=== PATIENT | male | born 1985 | race Caucasian/White ===

== ENCOUNTER 2023-01-19 02:31 | Emergency (ER) | payer SELFPAY ==
[2023-01-19 02:35] VITALS: BP 156/110; PULSE 74; RESP 18; TEMP 36.3; O2SAT 100; BMI 33.0
--- NOTE | 2023-01-19 02:41 | XRR_ITS ---
PROCEDURE INFORMATION: Exam: XR Chest Exam date and time: 01/19/2023 2:44 AM Age: 37 years old Clinical indication: Shortness of breath; Sternal or substernal pain; Patient HX: C/O substernal chest pain with SOB. ; Additional info: Cp TECHNIQUE: Imaging protocol: Radiologic exam of the chest. Views: 1 view. COMPARISON: No relevant prior studies available. FINDINGS: Lungs: Unremarkable. No consolidation. Pleural spaces: Unremarkable. No pleural effusion. No pneumothorax. Heart/Mediastinum: Unremarkable. No cardiomegaly. Bones/joints: Unremarkable. XR/XR chest 1V portable [id number] IMPRESSION: No acute findings.
--- NOTE | 2023-01-19 02:44 | ED_ITS ---
HPI - Chest Pain General: Chief Complaint: Chest Pain Stated Complaint: SOB Time Seen by Provider: 01/19/23 02:31 Source: patient Mode of arrival: ambulatory Limitations: no limitations History of Present Illness: 29-year-old male states been having some sharp chest pains over the last 2 days. He states the pain is a center of his chest he rates it a 3 out of 10 currently denies any nausea denies any diaphoresis denies any shortness of breath he denies any worsening proving factors. Denies any abdominal pain or vomiting. Associated symptoms: Deny abdominal pain, dyspnea, fever(s), nausea or vomiting Review of Systems Const: Denies: fever(s), chills, body aches or change in appetite Eyes: Denies: blurry vision or eye discomfort ENMT: Denies: throat pain or dental pain Card: Reports: chest pain Resp: Denies: dyspnea GI: Denies: abdominal pain, nausea, vomiting or diarrhea : Denies: dysuria Musc: Denies: neck pain or back pain Skin/Breast: Denies: rash Neuro: Denies: headache(s) Psych: Denies: depression Demetri/Lymph: Denies: easy bruising All/Imm: Denies: urticaria PFSH ED 2 PFSH: Medical History (Updated 01/19/23 @ 03:36 by Megan Jacinto MD) Hypertension Social History (Updated 01/19/23 @ 02:44 by Megan Jacinto MD) Substance/Drug Use: never Physical Exam Const: COMMON NORMALS: no acute distress, patient oriented x3 and healthy a ppearing HENMT: COMMON NORMALS: normocephalic and atraumatic HEAD & SCALP: normocephalic and atraumatic Eye: COMMON NORMALS: Equal, round and reactive pupils present and EOMs intact bilaterally PUPIL: Yes Equal, round and reactive pupils present Neck/C-Spine: COMMON NORMALS: full ROM and supple Chest: COMMONS NORMALS: normal inspection of the chest and normal palpation of entire chest wall Resp: COMMON NORMALS: normal respiratory effort, No retractions, No use of accessory muscles and clear to auscultation bilaterally AUSCULTATION: clear to auscultation bilaterally Cardio: COMMON NORMALS: regular rate, regular rhythm and No murmurs present (Cardio) RATE: regular rate RHYTHM: regular rhythm GI: COMMON NORMALS: Normal to inspection, nondistended, normoactive bowel sounds present, Soft to palpation, non-tender and no masses PALPATION: Yes Soft to palpation Extremity: COMMON NORMALS: normal to inspection and full ROM Neuro: COMMON NORMALS: patient oriented x3, moves all extremities and no focal motor deficits Psych: COMMON NORMALS: mental status grossly normal, Normal thought process p resent and cooperative THOUGHT PROCESS: Normal thought process present Skin: COMMON NORMALS: no rashes or lesions noted and no wounds GENERAL SKIN EXAM: no rashes or lesions noted Course Vital Signs: Vital signs: Vital Signs Temperature 97.3 F L 01/19/23 02:35 Pulse Rate 75 01/19/23 03:02 Respiratory Rate 13 01/19/23 03:02 Blood Pressure 128/92 01/19/23 03:02 Pulse Oximetry 98 01/19/23 03:02 Oxygen Delivery Me thod 01/19/23 02:35 MDM - Chest Pain Medical Decision Making Patient presents for chest pains atypical in nature been going on for over a day his troponin here is normal blood work is normal x-ray EKG is normal he is pain- free currently he is stable for discharge he is to return if worsening he under stands agrees to plan. Lab Data 01/19/23 02:49 01/19/23 02:49 Laboratory Results WBC 8.7 10^3/uL (4.0-10.0) 01/19/23 02:49 RBC 5.39 10^6/uL (4.1-5.3) H 01/19/23 02:49 Hgb 15.4 g/dL (11.7-16.6) 01/19/23 02:49 Hct 46.3 % (42.0-52.0) 01/19/23 02:49 MCV 85.9 fl (80-94) 01/19/23 02:49 MCH 28.6 pg (28.0-34.0) 01/19/23 02:49 MCHC 33.3 g/dL (30.0-36.0) 01/19/23 02:49 RDW 12.2 % (12.1-15.1) 01/19/23 02:49 Plt Count 306 10^3/cmm (130-400) 01/19/23 02:49 MPV 9.5 fL (7.4-10.4) 01/19/23 02:49 Neut % (Auto) 48.7 % 01/19/23 02:49 Lymph % (Auto) 31.1 % 01/19/23 02:49 [place] % (Auto) 10.6 % 01/19/23 02:49 Eos % (Auto) 8.0 % 01/19/23 02:49 Baso % (Auto) 1.4 % 01/19/23 02:49 Neut # (Auto) 4.24 10^3/uL (1.8-7.7) 01/19/23 02:49 Lymph # (Auto) 2.7 10^3/uL (0.8-4.8) 01/19/23 02:49 [place] # (Auto) 0.9 10^3/uL (0.2-0.9) 01/19/23 02:49 Eos # (Auto) 0.7 10^3/uL (0.0-0.8) 01/19/23 02:49 Baso # (Auto) 0.1 10^3/uL (0.0-0.1) 01/19/23 02:49 Nucleated RBC % (auto) 0 % 01/19/23 02:49 Nucleated RBCs # 0.0 /100WBC 01/19/23 02:49 Sodium 136 mmol/L (136-145) 01/19/23 02:49 Potassium 3.6 mmol/L (3.5-5.1) 01/19/23 02:49 Chloride 97 mmol/L (98-107) L 01/19/23 02:49 Carbon Dioxide 28 mmol/L (22-29) 01/19/23 02:49 Anion Gap 14.6 (5-19) 01/19/23 02:49 BUN 15 mg/dL (6-20) 01/19/23 02:49 Creatinine 0.9 mg/dL (0.7-1.2) 01/19/23 02:49 GFR Calculation 94.4 mL/min (90-130) 01/19/23 02:49 Glucose 122 mg/dL (65-115) H 01/19/23 02:49 Calculated Osmolality 284 mOsm/kg (285-295) L 01/19/23 02:49 Calcium 9.5 mg/dL (8.5-10.5) 01/19/23 02:49 Total Bilirubin 0.5 mg/dL (0.15-1.2) 01/19/23 02:49 AST 18 U/L (0-40) 01/19/23 02:49 ALT 20 U/L (0-41) 01/19/23 02:49 Alkaline Phosphatase 85 U/L (40-130) 01/19/23 02:49 Troponin T Baseline < 6 ng/L (0-15) 01/19/23 02:49 Total Protein 7.4 g/dL (6.6-8.7) 01/19/23 02:49 Albumin 4.1 g/dL (3.5-5.2) 01/19/23 02:49 Globulin 3.3 g/dL (1.3-4.6) 01/19/23 02:49 Lipase 26 U/L (13-60) 01/19/23 02:49 EKG Data EKG 1: I personally reviewed and interpreted this EKG as follows: EKG interpretation date: 01/19/23 EKG interpretation time: 02:45 Interpretation: nsr hr [address] or t wave abnormalities qrs 112 qtc 414 Discharge Plan Discharge Patient Disposition: Home Clinical Impression: Chest pain Condition: Stable Discharge Orders: Discharge ED (Routine); Ordered 01/19/23 Ordered By: Megan Jacinto Discharge Diet: Advance as tolerated Discharge Activity: Resume usual activity Patient Instructions: Chest Pain (ED) Coding Level of Care Code ED Retail Merchandising Specialist for Sanjiv Webber
--- NOTE | 2023-01-19 02:45 | ECG_ITS ---
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 Measurements Intervals [place] Rate: 73 P: 13 ND: 174 QRS: -34 QRSD: 112 T: 56 QT: 388 QTc: 428 Interpretive Statements SINUS RHYTHM LEFT AXIS DEVIATION [QRS AXIS < -30] MODERATE INTRAVENTRICULAR CONDUCTION DELAY [110+ ms QRS DURATION] No previous ECG available for comparison Electronically Signed On 01-19-2023 16:19:51 SOLAR SALES ASSESSOR by Lydia Ayoub M.D. [id number]
[2023-01-19] MEDS: aspirin 81 mg Chew Tablet 324 MG PO (02:51)
[2023-01-19 02:53] LABS: Basophils # 0.1 10^3/uL (0.0-0.1); Basophils % 1.4 %; Eosinophils # 0.7 10^3/uL (0.0-0.8); Hematocrit 46.3 % (42.0-52.0); Hemoglobin 15.4 g/dL (11.7-16.6); Lymphocytes # 2.7 10^3/uL (0.8-4.8); Lymphocytes % 31.1 %; Mean Corpuscular HGB Conc 33.3 g/dL (30.0-36.0); Mean Corpuscular Hemoglobin 28.6 pg (28.0-34.0); Mean Corpuscular Volume 85.9 fl (80-94); Mean Platelet Volume 9.5 fL (7.4-10.4); Monocytes # 0.9 10^3/uL (0.2-0.9); Monocytes % 10.6 %; Neutrophils # 4.24 10^3/uL (1.8-7.7); Neutrophils % 48.7 %; Nucleated Red Blood Cells % 0 %; Platelet Count 306 10^3/cmm (130-400); Red Blood Count 5.39 10^6/uL (4.1-5.3); Red Cell Distribution Width 12.2 % (12.1-15.1); White Blood Count 8.7 10^3/uL (4.0-10.0)
[2023-01-19 03:02] VITALS: BP 128/92; PULSE 75; RESP 13; O2SAT 98
[2023-01-19 03:11] LABS: Alanine Aminotransferase 20 U/L (0-41); Albumin Level 4.1 g/dL (3.5-5.2); Alkaline Phosphatase 85 U/L (40-130); Anion Gap 14.6 (5-19); Aspartate Amino Transferase 18 U/L (0-40); Blood Urea Nitrogen 15 mg/dL (6-20); Calcium 9.5 mg/dL (8.5-10.5); Carbon Dioxide 28 mmol/L (22-29); Chloride 97 mmol/L (98-107); Globulin 3.3 g/dL (1.3-4.6); Glomerular Filtration Rate 94.4 mL/min (90-130); Glucose 122 mg/dL (65-115); Lipase 26 U/L (13-60); Osmolality Calculated 284 mOsm/kg (285-295); Potassium 3.6 mmol/L (3.5-5.1); Sodium 136 mmol/L (136-145); Total Bilirubin 0.5 mg/dL (0.15-1.2); Total Protein 7.4 g/dL (6.6-8.7)
[2023-01-19 03:25] LABS: Troponin(5th) Baseline < 6 ng/L (0-15)
[2023-01-19 03:57] VITALS: BP 137/96; PULSE 70; RESP 14; O2SAT 97
--- NOTE | 2023-01-26 15:00 | DCPLANNER ---
Addendum entered by Mitali Bedoya 01/26/23 15:01: TCM called patient due to no primary care physician listed in patients chart - no answer at this time. Original Note: 01.21.23 - TCM called patient due to no primary care physician listed in patients chart - no answer at this time.
== END 2023-01-19 03:58 | disposition home or self-care (01) ==
PROVIDERS: Emergency Provider Emergency Medicine
DX: R07.9 Chest pain, unspecified (principal); I10 Essential (primary) hypertension
CPT/HCPCS: 71045; 80053; 83690; 84484; 85025; 93005; 99285